=== PATIENT | male | born 1975 | race African-American/Black ===

== ENCOUNTER 2019-11-02 11:33 | Emergency (ER) | payer MEDICAID ==
[~2019-11-02] VITALS: Ht 172.7 cm; Wt 68.0 kg
[2019-11-02] MEDS ORDERED: THIAMINE 100 MG/ML, 2ML ONE (11:51)
--- NOTE | 2019-11-02 11:58 | NUR ---
LEFT AC PIV STARTED FROM WHICH LABS WERE DRAWN. PATIENT THEN MEDICATED PER EMAR
--- NOTE | 2019-11-02 11:58 | NUR ---
PRESENTS VIA [facility] FROM [facility] AFTER BYSTANDER CALL FOR PRESUMED INTOXICATED PERSON STUMBLING ON HIMSELF ON ARRIVAL ADMITS TO DRINKING 4 PINTS OF VODKA THIS AM DENIES SI/HI REQUIRES 2L NC FOR POX >88%, 58, 143/83
[2019-11-02] MEDS ORDERED: SODIUM CHLORIDE FLUSH 10ML SYR IVF ONE (12:00)
[2019-11-02] MEDS ORDERED: PLEASE ENTER HEIGHT AND WEIGHT MC SCH (12:00)
[2019-11-02] MEDS ORDERED: THIAMINE 100 MG/ML, 2ML IM ONE (12:00)
[2019-11-02] MEDS ORDERED: SODIUM CHLORIDE 0.9% 1,000ML IVBOLUS ONE (12:00)
[2019-11-02 12:08] LABS: ALBUMIN 3.4 g/dL (3.4-5.0); ANION GAP 9 mmol/L (5-15); CHLORIDE 109 mmol/L (98-107); CREATININE 0.95 mg/dL (0.7-1.3)
[2019-11-02 12:11] LABS: MD YES; MEAN CORPUSCULAR HEMOGLOBIN 26.9 pg (27.5-34.5); MEAN CORPUSCULAR HGB CONC 31.5 g/dL (33.2-36.2); MEAN CORPUSCULAR VOLUME 85.6 fL (81-97); PLATELET COUNT 242 x10^3/uL (130-400); RED BLOOD COUNT 4.68 x10^6/uL (4.38-5.82)
--- NOTE | 2019-11-02 12:35 | NUR ---
PT SLEEPING BUT AROUSABLE
[2019-11-02 12:52] LABS: ANISOCYTOSIS 1+; BASOS#(MANUAL) 0.06 x10^3/uL (0-0.1); BASOS% (MANUAL) 1 % (0-1); EOS#(MANUAL) 0.33 x10^3/uL (0.0-0.4); EOS% (MANUAL) 6 % (1-7); LYMPH#(MANUAL) 2.04 x10^3/uL (1-3.4); LYMPHS% (MANUAL) 37 % (22-44); METAMYELOCYTES# (MANUAL) 0.06 x10^3/uL (0-0); METAMYELOCYTES% (MANUAL) 1 % (0-1); MONOS#(MANUAL) 0.39 x10^3/uL (0.3-2.7); MONOS% (MANUAL) 7 % (2-9); SEG#(MANUAL) 2.64 x10^3/uL (1.8-6.8); SEGS% (MANUAL) 48 % (42-75)
[2019-11-02 12:53] LABS: <PLATELET ESTIMATE> ADEQUATE; <PLT MORPHOLOGY> NORMAL PLT MORPH; HYPOCHROMIA 1+; OVALOCYTES 1+; TARGET CELLS 1+
[2019-11-02] MEDS ORDERED: POTASSIUM CHLORIDE 40 MEQ in SODIUM CHLORIDE 0.9% 500 ML IV ONE (13:00)
--- NOTE | 2019-11-02 13:00 | NUR ---
REQUESTED IV FLUIDS WITH KCL FROM PHARMACY
--- NOTE | 2019-11-02 13:30 | NUR ---
PROVIDED FOOD TRAY
--- NOTE | 2019-11-02 13:59 | NUR ---
CALLED PHARMACY BECAUSE NOT RECEIVED IV KCL
--- NOTE | 2019-11-02 14:11 | NUR ---
FLUIDS WITH POTASSIUM INFUSING. PT HAS SLURRED SPEECH, DROWSY AND DIFFICULT UNDERSTAND. CONTINUE TO MONITOR
--- NOTE | 2019-11-02 15:36 | NUR ---
SLEEPING, BREATHING EVEN AND UNLABORED
[2019-11-02 17:54] VITALS: BP 136/94
--- NOTE | 2019-11-02 17:54 | NUR ---
PT AWAKE AND WANTS TO LEAVE. MD AT BEDSIDE RE-EVALUATING PT. PT ABLE TO WALK WITHOUT ASSISTANCE.
== END 2019-11-02 17:58 | disposition home or self-care (01) ==
LOC: ED 13:42
DX: R41.82 Altered mental status, unspecified (principal); I95.2 Hypotension due to drugs; E87.6 Hypokalemia; F10.120 Alcohol abuse with intoxication, uncomplicated
CPT/HCPCS: 36415; 80048; 82040; 85025; 96361; 96365; 96366; 96372; 99283; J3411; J3480; J7030; J7040